=== PATIENT | female | born 1960 | race Caucasian/White ===

== ENCOUNTER 2018-09-02 05:19 | Day surgery (SDC) | payer OTHER, MEDICARE, MEDICAID ==
[~2018-09-02] VITALS: Ht 160 cm; Wt 89.1 kg
[~2018-09-02 05:19] MED LIST: AMLO-511 PO; ASCO500 PO; ASPI-1182 PO; BACL10TA PO; CALC-898 PO; CARB15DR61 AU; DENO60DI SQ; DOCU250C91 PO; LISI-662 PO; MELO-107 PO; MULT-248 PO; POLY17PO PO; SIMV-260 PO; TIZA4TAB4 PO; VITA400T9 PO; VITAD1000 PO
[2018-09-02] MEDS ORDERED: 0.9% SODIUM CHLORIDE 10 ML VIAL IVP ONE (05:20)
[2018-09-02] MEDS ORDERED: FentaNYL CITRATE-PF 100 MCG/2 ML VIAL ED ONE (05:20)
[2018-09-02] MEDS ORDERED: DEXAMETHASONE SOD PHOS 4 MG/ML VIAL IVP ONE (05:20)
[2018-09-02] MEDS ORDERED: ONDANSETRON HCL 4 MG/2 ML VIAL IVP ONE (05:20)
[2018-09-02] MEDS ORDERED: SUCCINYLCHOLINE CHLORIDE 20 MG/ML 10 ML VIAL IVP ONE (05:20)
[2018-09-02] MEDS ORDERED: EPHEDrine SULFATE 50 MG/ML VIAL IM ONE (05:20)
[2018-09-02] MEDS ORDERED: PROPOFOL 1% 20 ML VIAL IVP ONE (05:20)
[2018-09-02] MEDS ORDERED: LIDOCAINE/PF 2% 5 ML VIAL INJ ONE (05:20)
[2018-09-02] MEDS ORDERED: RINGERS SOLUTION,LACTATED 1,000 ML IV ONE ×2 (05:45→07:00)
[2018-09-02] MEDS ORDERED: AMPICILLIN SODIUM 1 GM/VIAL ONE (08:06)
[2018-09-02] MEDS ORDERED: FentaNYL CITRATE-PF 100 MCG/2 ML VIAL IVP PRN (09:15)
[2018-09-02] MEDS ORDERED: MEPERIDINE-PF 25 MG/ML VIAL IVP PRN (09:15)
[2018-09-02] MEDS ORDERED: HYDROmorphone 2 MG/ML SYRINGE IVP PRN (09:15)
[2018-09-02] MEDS ORDERED: OXYGEN THERAPY IH SCH (20:00)
== END 2018-09-02 11:45 | disposition home or self-care (01) ==
LOC: SURGERY 05:19
PROVIDERS: ATTEND Dentist General Practice
DX: K05.30 Chronic periodontitis, unspecified (principal); I10 Essential (primary) hypertension; G80.8 Other cerebral palsy; E55.9 Vitamin D deficiency, unspecified; K59.00 Constipation, unspecified; N31.8 Other neuromuscular dysfunction of bladder; E78.5 Hyperlipidemia, unspecified; M85.88 Other specified disorders of bone density and structure, other site; M51.86 Other intervertebral disc disorders, lumbar region; F70 Mild intellectual disabilities; I87.2 Venous insufficiency (chronic) (peripheral); Z88.1 Allergy status to other antibiotic agents; Z86.2 Personal history of diseases of the blood and blood-forming organs and certain disorders involving the immune mechanism; Z79.82 Long term (current) use of aspirin; Z99.3 Dependence on wheelchair; Z90.710 Acquired absence of both cervix and uterus; Z79.899 Other long term (current) drug therapy; Z88.8 Allergy status to other drugs, medicaments and biological substances
CPT/HCPCS: 41899; J0290; J0330; J1100; J2405; J2704; J3010; J3490 ×2; J7120